=== PATIENT | male | born 1990 | race Caucasian/White ===

== ENCOUNTER 2019-03-01 11:36 | Emergency (ER) | payer BC ==
[~2019-03-01] VITALS: Ht 170.2 cm; Wt 61.2 kg
[2019-03-01 12:01] VITALS: BP 112/73
[2019-03-01] MEDS ORDERED: IBUPROFEN600 MG ORAL (12:29)
[2019-03-01] MEDS ORDERED: ROBAXIN-750750 MG PO (12:29)
[2019-03-01 12:30] VITALS: BP 115/85
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
== END 2019-03-01 12:30 | disposition home or self-care (01) ==
LOC: EMR 12:25
DX: T14.8XXA Other injury of unspecified body region, initial encounter (principal); V43.62XA Car passenger injured in collision with other type car in traffic accident, initial encounter; Y92.410 Unspecified street and highway as the place of occurrence of the external cause; M54.2 Cervicalgia
CPT/HCPCS: 99282